=== PATIENT | female | born 1945 | race Two or more races ===

== ENCOUNTER 2022-01-06 08:15 | Inpatient (IN) | payer OTHER ==
[~2022-01-06] VITALS: Ht 160 cm; Wt 69.9 kg
[2022-01-06] MEDS ORDERED: LOSARTAN POTASS50 MG PO (12:35)
[2022-01-06] MEDS ORDERED: TOPROL XL25 M1 PO (12:35)
[2022-01-06] MEDS ORDERED: HYDRODIURIL12.5 MG PO (12:36)
[2022-01-06] MEDS ORDERED: PLAVIX75 MG PO (12:36)
[2022-01-06] MEDS ORDERED: CRESTOR20 MG PO (12:36)
[2022-01-06] MEDS ORDERED: DOLOGESIC 500-1 EACH PO (12:37)
[2022-01-06] MEDS ORDERED: HYDREA500 M1 PO (12:37)
[2022-01-11] MEDS ORDERED: HYDROCHLOROTHIA25 MG (07:53)
[2022-01-14] MEDS ORDERED: ULTRACET PO (07:19)
[2022-01-14] MEDS ORDERED: ELIQUIS2.5 MG PO (07:19)
== END 2022-01-14 13:13 | DRG 470 ==
LOC: SURH 01-11 06:07 → O/R 01-11 06:07 → SURG 01-11 08:15 → SURH 01-11 10:35 → SURG 01-11 13:30 → SURH 01-14 13:13
PROVIDERS: ADMIT Orthopaedic Surgery; ATTEND Orthopaedic Surgery
PROC: 0SRC0J9 Replacement of Right Knee Joint with Synthetic Substitute, Cemented, Open Approach (ICD-10-PCS; principal; 2022-01-11 13:30)
DX: M17.11 Unilateral primary osteoarthritis, right knee (principal); D62 Acute posthemorrhagic anemia; E87.1 Hypo-osmolality and hyponatremia; D69.3 Immune thrombocytopenic purpura; E83.42 Hypomagnesemia; M81.0 Age-related osteoporosis without current pathological fracture; M22.11 Recurrent subluxation of patella, right knee; I10 Essential (primary) hypertension; E78.5 Hyperlipidemia, unspecified

== ENCOUNTER 2022-02-14 17:12 | Emergency (ER) | payer OTHER ==
[~2022-02-14] VITALS: Ht 160 cm; Wt 68.5 kg
[~2022-02-14 17:12] MED LIST: CRESTOR20 MG PO; DOLOGESIC 500-1 EACH PO; ELIQUIS2.5 MG PO; HYDREA500 M1 PO; HYDROCHLOROTHIA25 MG; HYDRODIURIL12.5 MG PO; LOSARTAN POTASS50 MG PO; PLAVIX75 MG PO; TOPROL XL25 M1 PO; ULTRACET PO
[2022-02-14] MEDS ORDERED: MEDROLPACK PO (18:19)
[2022-02-14] MEDS ORDERED: NORFLEX100MG PO (18:19)
[2022-02-14] MEDS ORDERED: ACETAMINOPHEN650 M2 PO (18:19)
== END 2022-02-14 19:13 | disposition home or self-care (01) ==
LOC: ER 17:12
DX: M54.2 Cervicalgia (principal); M25.511 Pain in right shoulder; Z88.8 Allergy status to other drugs, medicaments and biological substances; Z91.012 Allergy to eggs

== ENCOUNTER 2023-03-11 15:36 | Emergency (ER) | payer OTHER ==
[~2023-03-11] VITALS: Ht 160 cm; Wt 70.8 kg
[~2023-03-11 15:36] MED LIST changes: +ACETAMINOPHEN650 M2 PO; +MEDROLPACK PO; +NORFLEX100MG PO
== END 2023-03-11 22:59 | disposition left against medical advice (07) ==
LOC: ER 15:36
DX: Z53.21 Procedure and treatment not carried out due to patient leaving prior to being seen by health care provider (principal)

== ENCOUNTER 2024-06-06 08:42 | Emergency (ER) | payer OTHER ==
[~2024-06-06] VITALS: Ht 160 cm; Wt 68.0 kg
[2024-06-06] MEDS ORDERED: AMLODIPINE-OLM1 EAC2 PO (09:02)
[2024-06-06 10:32] LABS: HEMATOCRIT 39.7 % (36.0-45.00); HEMOGLOBIN 12.9 g/dL (12.0-15.00); MEAN CELL VOLUME 96.5 fL (80.00-100.00); MEAN CORPUSCULAR HEMOGLOBIN 31.4 pg (27.00-32.0); MEAN CORPUSCULAR HGB CONC 32.6 g/dl (32.0-36.0); PLATELET COUNT 437 K/uL (150-450); RED BLOOD COUNT 4.11 M/uL (4.00-6.00); RED CELL DISTRIBUTION WIDTH 16.4 % (11.5-14.5)
[2024-06-06 11:12] LABS: ERYTHROCYTE SEDIMENTATION RATE 105 mm/hr
[2024-06-06 11:38] LABS: ALBUMIN 3.6 gm/dL (3.4-5.0); BILIRUBIN TOTAL 0.58 mg/dL (0.3-1.2); CREATININE SERUM 1.07 mg/dL (0.55-1.02); GFR 49.34; GLOBULINA 4.1 G/DL (2.4-3.5); POTASSIUM 4.46 mEq/L (3.5-5.1); TOTAL PROTEIN 7.7 gm/dL (6.4-8.2); URIC ACID 3.9 mg/dL (2.5-7.5)
== END 2024-06-06 13:30 | disposition home or self-care (01) ==
LOC: ER 08:44
PROVIDERS: Emergency Medicine
DX: L03.113 Cellulitis of right upper limb (principal); M79.643 Pain in unspecified hand; I10 Essential (primary) hypertension; Z88.6 Allergy status to analgesic agent; Z91.012 Allergy to eggs

== ENCOUNTER 2024-06-12 12:58 | Inpatient (IN) | payer OTHER ==
[~2024-06-12] VITALS: Ht 162.6 cm; Wt 68.0 kg
[~2024-06-12 12:58] MED LIST changes: +AMLODIPINE-OLM1 EAC2 PO
--- NOTE | 2024-06-12 13:17 | NUR ---
PACIENTE ALERTA Y ORIENTADA X3. REFIERE CELULITIS DE BRAZO DERECHO DESDE HACE DOS SEMANAS QUE NO LEACH GULSHAN CON ANTIBIOTICOS. SE MAYRA S/V Y SE UBICA.
[2024-06-12 15:36] LABS: HEMATOCRIT 39.7 % (36.0-45.00); HEMOGLOBIN 12.8 g/dL (12.0-15.00); MEAN CELL VOLUME 97.4 fL (80.00-100.00); MEAN CORPUSCULAR HEMOGLOBIN 31.3 pg (27.00-32.0); MEAN CORPUSCULAR HGB CONC 32.1 g/dl (32.0-36.0); PLATELET COUNT 508 K/uL (150-450); RED BLOOD COUNT 4.08 M/uL (4.00-6.00); RED CELL DISTRIBUTION WIDTH 16.3 % (11.5-14.5)
[2024-06-12 15:39] LABS: ERYTHROCYTE SEDIMENTATION RATE 68 mm/hr
[2024-06-12 15:49] LABS: PH,URINE 5.5 (5.0-8.0); URINE APPEARANCE Clear; URINE BILIRRUBIN Negative (NEGATIVE); URINE BLOOD Negative; URINE COLOR Yellow; URINE GLUCOSE Negative (NEGATIVE); URINE KETONE Negative (NEGATIVE); URINE LEUKOCYTE Negative; URINE NITRATE Negative
[2024-06-12 15:52] LABS: URINE BACTERIA 93.2 uL (0.0-1933); URINE EPITHELIAL CELLS 36.4 uL (0.0-38.8); URINE RBC 12.9 uL (0.0-20.8); URINE WBC 49.6 uL (0.0-23.2)
--- NOTE | 2024-06-12 15:52 | NUR ---
PACIENTE EVALUADA POR QUIEN [place] [facility], RN BRANHAM EDUCA ACERCA DEL MISMO Y REFIERE ENTENDER. SE COLECTAN MUESTRAS DE LABORATORIO MEDIANTE MEDIDAS ASEPTICAS.
[2024-06-12 15:57] LABS: URINE CAST 1.06 uL (0.0-1.40); URINE PROTEIN 300 (NEGATIVE)
[2024-06-12 16:00] LABS: INR 1.05; PARTIAL THROMBOPLASTIN TIME 29.4 SECONDS (22.0-34.0); PROTHROMBIN TIME 11.4 SECONDS (9.0-11.5)
[2024-06-12 16:11] LABS: ALBUMIN 3.2 gm/dL (3.4-5.0); BILIRUBIN TOTAL 0.31 mg/dL (0.3-1.2); CALCIUM 10.5 mg/dL (8.5-10.1); CREATININE SERUM 1.16 mg/dL (0.55-1.02); GFR 44.95; GLOBULINA 4.9 G/DL (2.4-3.5); POTASSIUM 4.75 mEq/L (3.5-5.1); TOTAL PROTEIN 8.1 gm/dL (6.4-8.2)
[2024-06-12] MEDS ORDERED: VANCOMYCIN HCL 1,000 MG VIAL IV ONE (18:00)
[2024-06-12] MEDS ORDERED: CEFTRIAXONE SODIUM 2,000 MG VIAL IV ONE (18:00)
[2024-06-12] MEDS ORDERED: 0.9 % SODIUM CHLORIDE 1,000 ML IV SCH (18:30)
[2024-06-12] MEDS ORDERED: FAMOTIDINE/PF 20 MG in 0.9 % SODIUM CHLORIDE 8 ML IV PUSH SCH (18:32)
[2024-06-12] MEDS ORDERED: CEFEPIME HCL 2,000 MG in 0.9 % SODIUM CHLORIDE 100 ML IV SCH (18:32)
[2024-06-12] MEDS ORDERED: AMLODIPINE BESYLATE 2.5 MG TABLET PO SCH (18:33)
[2024-06-12] MEDS ORDERED: LOSARTAN POTASSIUM 50 MG TABLET PO SCH (18:33)
[2024-06-12] MEDS ORDERED: TRAMADOL HCL 50 MG TABLET PO PRN (18:45)
[2024-06-12] MEDS ORDERED: ACETAMINOPHEN 500 MG GEL..CAP PO PRN (18:45)
[2024-06-12 21:55] VITALS: BP 176/85
[2024-06-13 01:36] VITALS: BP 125/64; O2SAT 100
[2024-06-13] MEDS ORDERED: CEFTRIAXONE SODIUM 2,000 MG in 0.9 % SODIUM CHLORIDE 100 ML IV SCH (09:00)
[2024-06-13] MEDS ORDERED: VANCOMYCIN HCL 1,000 MG VIAL IV SCH (09:00)
[2024-06-13] MEDS ORDERED: METOPROLOL SUCCINATE 25 MG TAB.SR.24H PO SCH (09:00)
[2024-06-13] MEDS ORDERED: ENOXAPARIN SODIUM 40 MG/0.4 ML SYRINGE SUBCUTANEO SCH (09:00)
[2024-06-13 09:05] VITALS: BP 190/87; O2SAT 90
[2024-06-13] MEDS ORDERED: AMLODIPINE BESYLATE 2.5 MG TABLET PO STA (11:07)
[2024-06-13] MEDS ORDERED: METOPROLOL SUCCINATE 25 MG TAB.SR.24H PO STA (11:08)
[2024-06-13] MEDS ORDERED: hydrALAZINE HCL 20 MG VIAL IV PRN (11:15)
[2024-06-13] MEDS ORDERED: RINGERS SOLUTION,LACTATED 1,000 ML IV SCH (11:15)
[2024-06-13] MEDS ORDERED: ENALAPRILAT DIHYDRATE 1.25 MG/ML VIAL IV PRN (11:15)
[2024-06-13 16:35] VITALS: BP 179/95
[2024-06-13] MEDS ORDERED: AMLODIPINE BESYLATE 5 MG TABLET PO SCH (17:54)
[2024-06-13 20:46] VITALS: BP 140/75
[2024-06-13] MEDS ORDERED: MELATONIN 5 MG TABLET PO SCH (21:00)
[2024-06-14 01:11] VITALS: BP 165/73; O2SAT 98
[2024-06-14 05:42] LABS: ALBUMIN 2.7 gm/dL (3.4-5.0); BILIRUBIN TOTAL 0.18 mg/dL (0.3-1.2); CALCIUM 9.2 mg/dL (8.5-10.1); CREATININE SERUM 0.82 mg/dL (0.55-1.02); GFR 67.07; GLOBULINA 3.4 G/DL (2.4-3.5); POTASSIUM 4.08 mEq/L (3.5-5.1); TOTAL PROTEIN 6.1 gm/dL (6.4-8.2)
[2024-06-14 06:17] LABS: HEMATOCRIT 31.1 % (36.0-45.00); HEMOGLOBIN 10.3 g/dL (12.0-15.00); MEAN CORPUSCULAR HEMOGLOBIN 31.5 pg (27.00-32.0); MEAN CORPUSCULAR HGB CONC 33.2 g/dl (32.0-36.0); PLATELET COUNT 432 K/uL (150-450); RED BLOOD COUNT 3.28 M/uL (4.00-6.00); RED CELL DISTRIBUTION WIDTH 16.2 % (11.5-14.5)
[2024-06-14] MEDS ORDERED: NICOTINE 21MG/24HR PATCH.TD24 TD SCH (09:00)
[2024-06-14] MEDS ORDERED: HYDROXYUREA 500 MG CAP PO SCH (09:00)
[2024-06-14] MEDS ORDERED: METOPROLOL SUCCINATE 50 MG TAB.SR.24H PO SCH (09:00)
[2024-06-14] MEDS ORDERED: AMLODIPINE BESYLATE 5 MG TABLET PO SCH (09:00)
[2024-06-14 09:14] VITALS: BP 159/77; O2SAT 96
[2024-06-14] MEDS ORDERED: LOSARTAN POTASSIUM 100 MG TABLET PO NR (10:55)
[2024-06-14] MEDS ORDERED: AMINO ACIDS 1 EACH TABLET PO SCH (17:00)
[2024-06-14] MEDS ORDERED: HYDROCHLOROTHIAZIDE 12.5 MG CAPSULE PO SCH (17:05)
[2024-06-14 21:48] VITALS: BP 140/70
[2024-06-15 02:26] VITALS: BP 158/61
[2024-06-15 04:19] LABS: HEMATOCRIT 30.1 % (36.0-45.00); HEMOGLOBIN 10.2 g/dL (12.0-15.00); MEAN CORPUSCULAR HEMOGLOBIN 32.1 pg (27.00-32.0); MEAN CORPUSCULAR HGB CONC 33.8 g/dl (32.0-36.0); PLATELET COUNT 395 K/uL (150-450); RED BLOOD COUNT 3.17 M/uL (4.00-6.00); RED CELL DISTRIBUTION WIDTH 15.8 % (11.5-14.5)
[2024-06-15 04:35] LABS: ALBUMIN 2.6 gm/dL (3.4-5.0); BILIRUBIN TOTAL 0.3 mg/dL (0.3-1.2); CREATININE SERUM 0.79 mg/dL (0.55-1.02); GFR 70.02; MAGNESIUM 1.6 mg/dL (1.8-2.4); PHOSPHOROUS 2.7 mg/dL (2.5-4.9); POTASSIUM 3.65 mEq/L (3.5-5.1); TOTAL PROTEIN 5.6 gm/dL (6.4-8.2)
[2024-06-15 08:21] VITALS: BP 150/70; O2SAT 98
[2024-06-15] MEDS ORDERED: LOSARTAN POTASSIUM 100 MG TABLET PO SCH (09:00)
[2024-06-15] MEDS ORDERED: CLOPIDOGREL BISULFATE 75 MG TABLET PO SCH (09:00)
[2024-06-15] MEDS ORDERED: IRON FUM,PS/FOLIC/BCOMP,C NO.9 1 CAP CAPSULE PO SCH (09:00)
[2024-06-15] MEDS ORDERED: CEFADROXIL500 MG PO (11:31)
[2024-06-15] MEDS ORDERED: INTEGRA PLUS C1 EACH PO (11:32)
[2024-06-15] MEDS ORDERED: AMLODIPINE BESYL5 MG PO (11:32)
[2024-06-15] MEDS ORDERED: LOSARTAN-HCTZ1 EAC2 PO (11:32)
[2024-06-15] MEDS ORDERED: INTESTINEX680 M1 PO (11:32)
[2024-06-15] MEDS ORDERED: MELATONIN5 M2 PO (11:33)
[2024-06-15] MEDS ORDERED: PROTEINEX-18 LI30 ML PO (11:33)
[2024-06-15] MEDS ORDERED: TOPROL XL50 M1 PO (11:33)
[2024-06-15] MEDS ORDERED: TOPROL XL25 M1 PO (11:37)
[2024-06-15] MEDS ORDERED: MAGNESIUM SULFATE IN WATER 50 ML IV NR (11:56)
[2024-06-15] MEDS ORDERED: AMINO ACIDS/PROTEIN HYDROLYS 30 ML BLIST.PACK PO SCH (13:00)
[2024-06-16] MEDS ORDERED: LOSARTAN/HYDROCHLOROTHIAZIDE 1 UDTAB TABLET PO SCH (09:00)
== END 2024-06-15 14:05 | disposition home or self-care (01) | DRG 603 ==
LOC: ER 13:00 → MEDI 19:12
PROVIDERS: Nurse Practitioner Family; ADMIT Internal Medicine; ATTEND Internal Medicine
PROC: B54MZZZ Ultrasonography of Right Upper Extremity Veins (ICD-10-PCS; principal; 2024-06-12)
DX: L03.113 Cellulitis of right upper limb (principal); M25.441 Effusion, right hand; E78.1 Pure hyperglyceridemia; I10 Essential (primary) hypertension

== ENCOUNTER 2025-02-02 10:33 | Emergency (ER) | payer OTHER ==
[~2025-02-02] VITALS: Ht 160 cm; Wt 70.3 kg
[~2025-02-02 10:33] MED LIST changes: +AMLODIPINE BESYL5 MG PO; +CEFADROXIL500 MG PO; +INTEGRA PLUS C1 EACH PO; +INTESTINEX680 M1 PO; +LOSARTAN-HCTZ1 EAC2 PO; +MELATONIN5 M2 PO; +PROTEINEX-18 LI30 ML PO; +TOPROL XL50 M1 PO
[2025-02-02] MEDS ORDERED: TRAMADOL HCL E100 M1 (10:53)
[2025-02-02] MEDS ORDERED: LEVALBUTEROL HCL 1.25 MG/3 ML SOLUTION IH STA (11:15)
[2025-02-02] MEDS ORDERED: BUDESONIDE 0.5 MG/2 ML AMPUL.NEB IH STA (11:15)
[2025-02-02] MEDS ORDERED: METHYLPREDNISOLONE SOD SUCC 125 MG VIAL IV STA (11:16)
[2025-02-02 12:25] LABS: BASO % 0.6 % (0.1-1.2); EOS # 0.02 (0.04-0.54); EOS % 0.3 % (0.7-7.0); HEMATOCRIT 38.5 % (34.1-44.9); HEMOGLOBIN 12.1 g/dL (11.2-15.7); LYMPH # 1.46 (1.18-3.74); LYMPH % 22.6 % (19.3-53.1); MEAN CORPUSCULAR HEMOGLOBIN 31.6 pg (25.6-32.2); MONO % 9.3 % (4.7-12.5); NEUT # 4.32 (1.56-6.13); NEUT % 66.9 % (34.0-71.1); PLATELET COUNT 357 K/uL (163-369); RED BLOOD COUNT 3.83 M/uL (3.93-5.22); RED CELL DISTRIBUTION WIDTH 16.1 % (11.6-14.4)
== END 2025-02-02 15:14 | disposition home or self-care (01) ==
LOC: ER 11:03
PROVIDERS: General Practice
DX: J44.1 Chronic obstructive pulmonary disease with (acute) exacerbation (principal); J45.909 Unspecified asthma, uncomplicated; Z88.6 Allergy status to analgesic agent; Z91.012 Allergy to eggs
CPT/HCPCS: 36415; 71046; 96365; 99283; J3490